=== PATIENT | male | born 1960 | race Caucasian/White ===

== ENCOUNTER 2017-08-22 12:11 | Emergency (ER) | payer BC ==
[~2017-08-22] VITALS: Ht 172.7 cm; Wt 77.1 kg
--- NOTE | 2017-08-22 12:17 | NUR ---
PT AMBULATORY TO ER BED 10. C/O ABDOMINAL DISTENSION, PAIN SINCE 399. ALSO UNABLE TO URINATE. GOWNED AND PLACED ON MONITOR. NAD NOTED. AWAITING MD ANAYA.
--- NOTE | 2017-08-22 12:26 | NUR ---
DR MADRID AT BEDSIDE FOR EVAL.
--- NOTE | 2017-08-22 12:30 | NUR ---
PT UNABLE TO PROVIDE URINE SAMPLE AT THIS TIME.
--- NOTE | 2017-08-22 12:35 | NUR ---
[employer] OPERATOR AT BEDSIDE FOR BLOOD DRAW.
[2017-08-22 12:41] LABS: BASOPHILS # (AUTO) 0.1 /CMM (0.0-0.2); BASOPHILS % (AUTO) 0.8 % (0.0-2.0); EOSINOPHILS % (AUTO) 0.2 % (0.0-6.0); HEMATOCRIT 49 % (39-51); HEMOGLOBIN 16.7 g/dL (13.5-17.5); LYMPHOCYTES # (AUTO) 0.8 /CMM (0.8-4.8); LYMPHOCYTES % (AUTO) 6.8 % (20.0-44.0); MEAN CORPUSCULAR HEMOGLOBIN 29 PG (26.0-33.0); MEAN CORPUSCULAR HGB CONC 34 g/dl (31.0-36.0); MEAN CORPUSCULAR VOLUME 84 fL (80-96); MONOCYTES # (AUTO) 0.6 /CMM (0.1-1.30); MONOCYTES % (AUTO) 5.4 % (2.0-12.0); NEUTROPHILS # (AUTO) 10.2 /CMM (1.8-8.9); NEUTROPHILS % (AUTO) 86.8 % (43.0-81.0); PLATELET COUNT (AUTO) 242 /CMM (150-450); RDW COEFFICIENT OF VARIATION 11.9 (11.5-15.0); WHITE BLOOD COUNT (AUTO) 11.7 K/uL (4.3-11.0)
[2017-08-22 12:48] LABS: POTASSIUM 4.2 mmol/L (3.5-5.1)
[2017-08-22 12:53] LABS: APPEARANCE,URINE Clear (CLEAR); BILIRUBIN,URINE Negative (NEGATIVE); BLOOD, URINE Negative Ery/uL (NEGATIVE); COLOR,URINE Light yellow (YELLOW); KETONES,URINE Negative (NEGATIVE); LEUKOCYTE ESTERASE ,URINE Negative (NEGATIVE); NITRITE, URINE Negative (NEGATIVE); PROTEIN,URINE Negative (NEGATIVE); UGLUCOSE Negative (NEGATIVE); UROBILINOGEN,URINE 0.2 EU/dL (0.2)
[2017-08-22 12:54] LABS: ALBUMIN 3.9 g/dL (3.4-5.0); BILIRUBIN,DIRECT 0.1 mg/dL (0.0-0.2); BILIRUBIN,TOTAL 0.5 mg/dL (0.2-1.0); TOTAL PROTEIN, SERUM 7.6 g/dL (6.4-8.2)
--- NOTE | 2017-08-22 13:00 | NUR ---
PT TO [facility] FOR ABDOMINAL/PELVIC CT SCAN VIA WHEELCHAIR.
--- NOTE | 2017-08-22 14:32 | NUR ---
Patient discharged to home in stable condition. Written and verbal after care instructions given. Patient verbalizes understanding of instruction.
[2017-08-22 14:33] VITALS: BP 136/84
== END 2017-08-22 14:33 | disposition home or self-care (01) ==
LOC: ER 12:17
DX: N40.0 Benign prostatic hyperplasia without lower urinary tract symptoms (principal)
CPT/HCPCS: 36415; 80048-TC; 80076-TC; 81000-TC; 83690-TC; 85025-TC; A4606; Z7610

== ENCOUNTER 2017-08-22 17:49 | Emergency (ER) | payer BC ==
[~2017-08-22] VITALS: Ht 172.7 cm; Wt 77.1 kg
--- NOTE | 2017-08-22 18:02 | NUR ---
PT AMBULATORY TO ER BED 14. C/O UNABLE TO URINATE. SEEN EARLIER FOR SAME REASON AND WAS PRESCRIBED FLOMAX. NAD NOTED. VSS. AWAITING MD ANAYA.
[2017-08-22] MEDS ORDERED: HYDROCODONE/APAP 5/325MG 1 EACH TABLET PO ONE (19:00)
[2017-08-22] MEDS ORDERED: HYDROCODONE/APAP 5/325MG 1 EACH TABLET ONE (19:02)
[2017-08-22] MEDS ORDERED: LIDOCAINE 2% JEL UROJET 10 ML MM ONE (19:07)
--- NOTE | 2017-08-22 20:45 | NUR ---
PROVIDED W/ LEG BAG. D/C HOME IN STABLE CONDITION.
[2017-08-22 20:46] VITALS: BP 125/84
== END 2017-08-22 20:48 | disposition home or self-care (01) ==
LOC: ER 17:54
DX: N40.1 Benign prostatic hyperplasia with lower urinary tract symptoms (principal)
CPT/HCPCS: 51702; 99284; A4606; J3490; Z7610